=== PATIENT | male | born 1960 | race Caucasian/White ===

== ENCOUNTER 2020-07-20 17:23 | Emergency (ER) | payer OTHER, SELFPAY ==
--- NOTE | ~2020-07-20 | XR_ITS ---
EXAMINATION: XR toe 1st LT min 2V INDICATION: Left first toe pain TECHNIQUE: Four views of the left first toe are obtained. COMPARISON: None available FINDINGS: There is dorsal and medial dislocation of the first proximal phalanx with respect to the me tatarsal. A tiny osseous fragment projects near the base of the proximal phalanx on one of the obliqu e views. The joint spaces are otherwise normal. There is soft tissue swelling of the first toe. IMPRESSION: 1. Dorsal and medial dislocation of the first proximal phalanx with respect to the metatarsal. 2. Possible chip fracture. Reviewed, dictated and finalized at location A.
--- NOTE | ~2020-07-20 | XR_ITS ---
EXAMINATION: XR toe 1st LT min 2V INDICATION: Right first toe post reduction TECHNIQUE: Two views of the right first toe are obtained. COMPARISON: 1745 hours FINDINGS: The previously described dislocation at the first metatarsophalangeal joint has been reduce d. Alignment is anatomic. There is soft tissue swelling of the first toe. A tiny osseous fragment pro jects at the plantar aspect of the base of the first proximal phalanx. IMPRESSION: 1. Reduced first metatarsophalangeal joint dislocation. 2. Tiny osseous fragment at the plantar base of the first proximal phalanx, possibly chip fracture. Reviewed, dictated and finalized at location A. IMPRESSION: 1. Reduced first metatarsophalangeal joint dislocation. 2. Tiny osseous fragment at the plantar base of the first proximal phalanx, pos sibly chip fracture.
[2020-07-20 17:32] VITALS: BP 94/59; PULSE 65; RESP 16; TEMP 36.7; O2SAT 98
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
[2020-07-20 18:20] VITALS: BP 96/52
[2020-07-20 18:39] VITALS: BP 94/64
== END 2020-07-20 18:39 | disposition home or self-care (01) ==
PROVIDERS: Emergency Provider Nurse Practitioner; PCP Internal Medicine Endocrinology, Diabetes & Metabolism
DX: S93.122A Dislocation of metatarsophalangeal joint of left great toe, initial encounter (principal); V28.4XXA Motorcycle driver injured in noncollision transport accident in traffic accident, initial encounter; J45.909 Unspecified asthma, uncomplicated; E78.00 Pure hypercholesterolemia, unspecified; I10 Essential (primary) hypertension
CPT/HCPCS: 28630; 73660; 99215; G0463

== ENCOUNTER 2023-03-26 17:05 | Emergency (ER) | payer OTHER, SELFPAY ==
[2023-03-26] VITALS (7 sets, daily range): BP systolic 150–156; BP diastolic 85–97; PULSE 60–78; RESP 15–26; TEMP 36.3–36.6; O2SAT 93–100
--- NOTE | ~2023-03-26 | CT_ITS ---
EXAMINATION: CT abdomen pelvis wo con DATE: 03/26/2023 18:29 INDICATION: Left flank pain. TECHNIQUE: Computed tomography (CT) of the abdomen and pelvis was performed without intravenous contr ast. Automated exposure control and iterative reconstruction technique were employed. The dose-length product was 760.65 mGy-cm. COMPARISON: None. FINDINGS: The visualized portions of the lung bases demonstrate mild atelectasis. No pleural effusion . A calcified left lung nodule is consistent with old granulomatous disease. No pleural effusion. The heart size is normal. There are coronary artery calcifications. No pericardial effusion. The liver, gallbladder, spleen, pancreas, and adrenal glands are normal. There is a 1 mm stone in right kidney. There is a 4 mm stone in left kidney. There is mild left hydronephrosis and hydroureter. There is a 4 mm stone at left ureterovesicular junction. There is diverticulosis of the colon without evidence of diverticulitis. There are no dilated loops of bowel. The appendix is normal. There is calcified athe rosclerosis of the aorta and many of the other arteries. 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 There are no pathologically enlarged lymph nodes. There is no free intraperitoneal fluid . There is prominent fat in left inguinal canal that may be a hernia. There are old healed left rib f ractures. There is mild thoracic and lumbar spondylosis. IMPRESSION: 1. 4 mm stone at left ureterovesicular junction with mild left hydronephrosis and hydroureter. 2. Bilateral nonobstructing kidney stones. Reviewed, dictated and finalized at location E. ICAL DOCUMENTATION CLERK IMPRESSION: 1. 4 mm stone at left ureterovesicular junction with mild left hydronephrosis a nd hydroureter. 2. Bilateral nonobstructing kidney stones.
[2023-03-26 17:26] LABS: Basophils Absolute Auto 0.1 K/mm3 (0.0-0.1); Basophils Percent Auto 0.7 % (0.2-1.2); Eosinophils Absolute Auto 0.1 K/mm3 (0-0.3); Eosinophils Percent Auto 1.3 % (0-4.4); Hematocrit 48.9 % (42.0-52.0); Hemoglobin 15.3 g/dL (14.0-18.0); Immature Granulocyte Absolute 0.03 K/mm3 (0.00-0.031); Immature Granulocyte Percent A 0.3 % (0-0.5); Lymphocytes Absolute Auto 1.79 K/mm3 (0.9-3.2); Lymphocytes Percent Auto 17.8 % (18.3-44.2); Mean Corpuscular HGB Conc 31.3 g/dl (32-36); Mean Corpuscular Hemoglobin 28.9 pg (26-34); Mean Corpuscular Volume 92.4 fl (80-100); Mean Platelet Volume 9.9 fl (7.4-10.4); Monocytes Absolute Auto 0.6 K/mm3 (0.1-0.6); Monocytes Percent Auto 6.3 % (2.6-8.5); Neutrophils Absolute Auto 7.4 K/mm3 (1.3-6.7); Neutrophils Percent Auto 73.6 % (45.5-73.1); Platelet Count Result 281 k/mm3 (150-375); Red Blood Count 5.29 M/mm3 (4.6-6.20); Red Cell Distribution Width 13.3 % (11.5-14.5)
[2023-03-26 17:39] LABS: Alanine Aminotransferase 24 U/L (6-50); Albumin Level 4.3 g/dL (3.5-5.1); Alkaline Phosphatase 114 U/L (38-126); Anion Gap 9 mmol/L (8-16); Aspartate Amino Transferase 27 U/L (17-59); Bilirubin,Total 0.6 mg/dL (0.2-1.3); Blood Urea Nitrogen 22 mg/dL (9-20); Calcium 9.6 mg/dL (8.4-10.2); Carbon Dioxide 27 mmol/L (22-30); Chloride 103 mmol/L (98-107); Estimated CRCL calculation 67 ml/min; Estimated Glomerular Filt Rate > 60; Glucose 153 mg/dL (65-110); Potassium 3.9 mmol/L (3.4-5.0); Sodium 139 mmol/L (137-145)
[2023-03-26 17:45] LABS: Appearance Urine Clear (Clear); Bacteria Urine None Seen /hpf; Bilirubin Urine Negative (Negative); Blood Urine 3+ (Negative); Color Urine Yellow (Yellow); Glucose Urine UA Negative (Negative); Hyaline Casts Urine Present /lpf; Ketones Urine Trace mg/dL (Negative); Leukocyte Esterase Ur Negative LEU/UL (Negative); Nitrate Urine Negative (Negative); Protein Urine Trace mg/dL (Negative); RBC Urine >100 /hpf (0-2); Specific Grav Ur 1.022 (1.001-1.035); Squamous Epithelial Cell Urine None seen /hpf (Few); WBC Urine 0-5 /hpf
[2023-03-26 17:48] LABS: Add Urine Microscopic? YES
--- NOTE | 2023-03-26 17:55 | ED.GENADULT ---
HPI - General Adult General Chief complaint: Urogenital-Male Stated complaint: kidney stone Time Seen by Provider: 03/26/23 17:45 Source: patient Mode of arrival: ambulatory Limitations: no limitations History of Present Illness HPI narrative: this is a 63-year-old male who presents to the ED with chief complaint eye this afternoon reports he has had kidney stones in the this similar today. Reports the pain was waxing and waning. He give us a urine sample and states that ever since then the pain has been significantly decreased. denies fevers, chills, cough, chest pain, shortness of breath. Related Data Home Medications Medication Instructions Recorded Confirmed lisinopril 40 mg tablet 40 mg PO DAILY 07/20/20 07/20/20 Allergies Allergy/AdvReac Type Severity Reaction Status Date / Time No Known Allergies Allergy Verified 03/26/23 17:06 Review of Systems Review of Systems: All systems as dictated in [facility] Past Medical History Medical History (Updated 03/27/23 @ 00:00 by Background Daemon) Asthma Hypercholesterolemia Hypertension Exam Narrative: GENERAL: Well-appearing, well-nourished, and in no acute distress. HEAD: Normocephalic, atraumatic. EYES: PERRLA and EOMI. ENT: Nares clear, no rhinorrhea or epistaxis. Mucous membranes moist. Oropharynx without tonsillar hypertrophy exudate or other lesions. NECK: Supple. No adenopathy or masses. CHEST: No respiratory distress. Clear to auscultation. No wheezes rales or rhonchi HEART: Regular rate and rhythm. No murmur heard. Normal peripheral pulses. ABDOMEN: Soft, nontender, nondistended, normal active bowel sounds. Negative left and right flank tenderness. MSK: Normal range of motion. No edema. SKIN: Warm, dry, no rash. NEURO: Alert and oriented x3. No focal deficits. PSYCH: Normal mood and affect. Course Vital Signs Vital signs: Vital Signs Temperature 97.3 F L 03/26/23 17:08 Pulse Rate 72 03/26/23 17:08 Respiratory Rate 18 03/26/23 17:08 Blood Pressure 153/85 H 03/26/23 17:08 Pulse Oximetry 96 03/26/23 17:08 Oxygen Delivery Room Air 03/26/23 17:08 Temperature 97.8 F 03/26/23 19:02 Pulse Rate 71 03/26/23 19:31 Respiratory Rate 15 03/26/23 19:31 Blood Pressure 156/93 H 03/26/23 19:31 Pulse Oximetry 100 03/26/23 19:31 Oxygen Delivery Room Air 03/26/23 17:08 Medical Decision Making MDM Narrative Medical decision making narrative: This is a 63-year-old male who presents to the ED with chief complaint of left flank pain beginning today. Vitals are normal. by the time I was able to examine the patient he gave a urinalysis and feels that he may have passed the stone. Providing the urinalysis provided great symptomatic relief. Exam does not reveal any flank tenderness or abdominal tenderness. Labs are unremarkable. Urinalysis remarkable for blood and trace ketones. CT abdomen and pelvis without contrast shows 4 mm stone at the left UVJ. he continues to be pain-free on reexaminations. He feels comfortable going home. Prescriptions for Zofran, Flomax and Baxter prescribed. Pt will be discharged in stable condition. Return precautions given and supportive measures discussed. Pt is understanding and agreeable with plan for discharge and follow-up with PCP. Vital Signs Vital Signs: Vital Signs Temperature 97.3 F L 03/26/23 17:08 Pulse Rate 72 03/26/23 17:08 Respiratory Rate 18 03/26/23 17:08 Blood Pressure 153/85 H 03/26/23 17:08 Pulse Oximetry 96 03/26/23 17:08 Oxygen Delivery Room Air 03/26/23 17:08 Temperature 97.8 F 03/26/23 19:02 Pulse Rate 71 03/26/23 19:31 Respiratory Rate 15 03/26/23 19:31 Blood Pressure 156/93 H 03/26/23 19:31 Pulse Oximetry 100 03/26/23 19:31 Oxygen Delivery Room Air 03/26/23 17:08 Lab Data 03/26/23 17:14 03/26/23 17:14 Labs: Lab Results 03/26/23 Range/Units 17:
== END 2023-03-26 19:33 | disposition home or self-care (01) ==
LOC: ANHED 19:28
PROVIDERS: Emergency Medicine; Emergency Provider Physician Assistant; PCP Internal Medicine Endocrinology, Diabetes & Metabolism
DX: R10.9 Unspecified abdominal pain (principal); I10 Essential (primary) hypertension; E78.00 Pure hypercholesterolemia, unspecified; J45.909 Unspecified asthma, uncomplicated; N13.2 Hydronephrosis with renal and ureteral calculous obstruction
CPT/HCPCS: 36415; 74176; 80053; 81001; 85025; 99284